=== PATIENT | male | born 1995 | race Caucasian/White ===

== ENCOUNTER 2017-05-07 12:38 | Emergency (ER) | payer BC ==
[~2017-05-07] VITALS: Ht 188 cm; Wt 78.0 kg
[2017-05-07 12:45] VITALS: TEMP 36.4; Ht 188 cm; Wt 78.0 kg
[2017-05-07] MEDS ORDERED: KETOROLAC TROMETHAMINE 30 MG/ML VIAL IV STA (13:45)
[2017-05-07] MEDS ORDERED: DiphenhydrAMINE HCL 50 MG/ML VIAL IV STA (13:45)
[2017-05-07] MEDS ORDERED: PROCHLORPERAZINE 5 MG/ML 2 ML VIAL IV STA (13:45)
[2017-05-07 14:06] LABS: BASO % 0.3 %; BASO ABS # 0.02 K/uL (0-0.2); EOS % 1.2 %; EOS ABS # 0.07 K/uL (0-0.5); HEMOGLOBIN 15.8 g/dL (14.0-18.0); IG# 0.01 K/uL (0.00-0.02); LYMPH % 24.3 %; LYMPH ABS # 1.45 K/uL (1.2-3.4); MEAN CORPUSCULAR HEMOGLOBIN 31.2 pg (25-34); MEAN CORPUSCULAR HGB CONC 35.9 g/dl (32-36); MONO % 10.7 %; MONO ABS # 0.64 K/uL (0.11-0.59); NEUT % 63.3 %; NEUT ABS # 3.77 K/uL (1.4-6.5); PLATELET COUNT 316 K/uL (130-400); RED CELL DISTRIBUTION WIDTH CV 12.1 % (11.5-14.5); RED CELL DISTRIBUTION WIDTH SD 38.2 fL (36.4-46.3); WHITE BLOOD COUNT 5.96 K/uL (4.8-10.8)
--- NOTE | 2017-05-07 14:16 | EMERGENCY ROOM VISIT NOTE ---
History First contact with patient: 13:32 Chief Complaint: HEADACHE Stated Complaint: HEADACHE, CAN'T THINK STRAIGHT History of Present Illness The patient is a 21 year old male who presents to the Emergency Room with complaints of a headache which started approximately 4 hours ago. The patient states that after showering this morning, he developed a gradually worsening left-sided headache. He states the headache is located above his left eye and is throbbing in nature. He rates the discomfort a 10/10. He has associated feeling of numbness throughout his right arm and shoulder. He has been nauseous but has not vomited. The patient took aspirin without relief. He reports this is the second time he has had a headache this week. The patient has reported history of similar headaches and states that they usually resolve with Advil. He is concerned because this headache has not resolved at this time. He has been to the ER before with a similar headache and had CT and MRI which he was told were normal. He has never followed up with his primary care provider or a neurologist regarding his headaches. He denies any confusion, blurred vision, slurred speech, or weakness. He reports some slight photosensitivity. He denies any fevers or recent flulike symptoms. Review of Systems A complete 10 point review of systems was reviewed with the patient with pertinent positives and negatives as per history of present illness. All else were negative. Past Medical/Surgical History Medical Problems: (1) Osteogenesis imperfecta Social History Smoking Status: Never Smoker Drug Use: none Marital Status: single Housing Status: lives with roommate Occupation Status: [employer] student Current/Historical Medications No Active Prescriptions or Reported Meds Physical Exam Vital Signs Date Time Temp Pulse Resp B/P (MAP) Pulse Ox O2 Delivery O2 Flow Rate FiO2 05/07/17 16:19 70 16 128/77 99 05/07/17 16:12 70 16 128/77 99 Room Air 05/07/17 14:45 55 18 124/74 100 Room Air 05/07/17 12:45 36.4 67 16 122/81 97 Room Air Physical Exam VITALS: Vitals are noted on the nurse's note and reviewed by myself. Vital signs stable. GENERAL: This is a 21-year-old male, in no acute distress, nondiaphoretic, well- developed well-nourished. SKIN: The skin was without rashes. HEAD: Normocephalic atraumatic. EARS: External auditory canals clear, tympanic membranes pearly valentine without erythema or effusion bilaterally. EYES: Pupils equal round and reactive to light and accommodation. Extraocular movements intact. MOUTH: Mucous membranes moist. Tonsils are not enlarged. Pharynx without erythema or exudate. NECK: Supple without nuchal rigidity. No lymphadenopathy. No meningismus. HEART: Regular rate and rhythm without murmurs gallops or rubs. LUNGS: Clear to auscultation bilaterally without wheezes, rales or rhonchi. MUSCULOSKELETAL: Strength 5/5 throughout. NEURO: Patient was alert and oriented to person place and time. Deep tendon reflexes 2+ throughout. No focal neurological deficits. Medical Decision & Procedures ER Provider Diagnostic Interpretation: HEAD WITHOUT CONTRAST (CT) CT DOSE: 614.27 mGy.cm HISTORY: Neuropathy left sided h/a with right arm numbness, hx similar, worse TECHNIQUE: Multiaxial CT images of the head were performed without the use of intravenous contrast. A dose lowering technique was utilized adhering to the principles of ALARA. Comparison: 06/13/2015 Findings: The paranasal sinuses and mastoid air cells are clear. The calvarium and skull base are intact. The ventricles and sulci are within normal limits. There is no mass, hematoma, midline shift, or acute infarct. Impression: No acute intracranial abnormality. Laboratory Results 05/07/17 13:56 Red Blood Count 5.06, Mean Corpuscular Volume 87.0, Mean Corpuscular Hemoglobin 31.2, Mean Corpuscular Hemoglobin Concent 35.9, Mean Platelet Volume 10.0, Neutrophils (%) (Auto) 63.3, Lymphocytes (%) (Auto) 24.3, Monocytes (%) (Auto) 10.7, Eosinophils (%) (Auto) 1.2, Basophils (%) (Auto) 0.3, Neutrophils # (Auto ) 3.77, Lymphocytes # (Auto) 1.45, Monocytes # (Auto) 0.64, Eosinophils # (Auto ) 0.07, Basophils # (Auto) 0.02 05/07/17 13:56 Test 05/07/17 13:56 White Blood Count 5.96 K/uL (4.8-10.8) Red Blood Count 5.06 M/uL (4.7-6.1) Hemoglobin 15.8 g/dL (14.0-18.0) Hematocrit 44.0 % (42-52) Mean Corpuscular Volume 87.0 fL (80-100) Mean Corpuscular Hemoglobin 31.2 pg (25-34) Mean Corpuscular Hemoglobin Concent 35.9 g/dl (32-36) Platelet Count 316 K/uL (130-400) Mean Platelet Volume 10.0 fL (7.4-10.4) Neutrophils (%) (Auto) 63.3 % Lymphocytes (%) (Auto) 24.3 % Monocytes (%) (Auto) 10.7 % Eosinophils (%) (Auto) 1.2 % Basophils (%) (Auto) 0.3 % Neutrophils # (Auto) 3.77 K/uL (1.4-6.5) Lymphocytes # (Auto) 1.45 K/uL (1.2-3.4) Monocytes # (Auto) 0.64 K/uL (0.11-0.59) Eosinophils # (Auto) 0.07 K/uL (0-0.5) Basophils # (Auto) 0.02 K/uL (0-0.2) RDW Standard Deviation 38.2 fL (36.4-46.3) RDW Coefficient of Variation 12.1 % (11.5-14.5) Immature Granulocyte % (Auto) 0.2 % Immature Granulocyte # (Auto) 0.01 K/uL (0.00-0.02) Anion Gap 5.0 mmol/L (3-11) Est Creatinine Clear Calc Drug Dose 156.6 ml/min Estimated GFR () 146.8 Estimated GFR (Non- 126.7 BUN/Creatinine Ratio 14.6 (10-20) Calcium Level 8.9 mg/dl (8.5-10.1) Medications Administered Medications (Trade) Dose Ordered Sig/Cristian Route Start Time Stop Time Status Last Admin Dose Admin Ketorolac Tromethamine (Toradol Inj) 30 mg NOW STAT IV 05/07/17 13:45 05/07/17 13:47 DC 05/07/17 14:00 30 MG Diphenhydramine HCl (Benadryl Inj) 25 mg NOW STAT IV 05/07/17 13:45 05/07/17 13:47 DC 05/07/17 14:01 25 MG Prochlorperazine Edisylate (Compazine Inj) 10 mg NOW STAT IV 05/07/17 13:45 05/07/17 13:47 DC 05/07/17 14:01 10 MG Dexamethasone Sodium Phosphate (Decadron Inj) 10 mg NOW STAT IV 05/07/17 14:30 05/07/17 14:31 DC 05/07/17 14:48 10 MG ED Course The patient was evaluated as above. Labs were drawn and IV access was obtained. Patient was medicated with IV Toradol, Benadryl and Compazine. Patient was reevaluated and was resting on his side with his eyes closed. He reports his headache has improved slightly and rates his current discomfort a 7/ 10. 10 mg Decadron IV was ordered CT of the head was performed and read by radiology as above. Patient was reevaluated and states that he feels much better. His father is present. Findings and treatment plan were discussed with patient and father at length. Discharge instructions were reviewed with the patient. The patient verbalized understanding of my assessment and treatment plan and was discharged home in good condition. Medical Decision The differential diagnosis includes acute intracranial bleed, meningitis, encephalitis, mass or mass effect, sinusitis, infection, tumor, headache, temporal arteritis and carbon monoxide exposure, and migraine. The patient is a 21-year-old male who presents today complaining of headache. Labs revealed no leukocytosis, anemia or concerning electrolyte abnormalities. CT of the head was performed as the patient reports a headache which is more severe than his previous headaches. This was read by radiology with no concerning findings. I did review previous records. Patient was seen here approximately 1 year ago with very similar presentation. At that time, he had a CT as well as MRI with and without contrast of the brain. Determination was made that the patient was likely suffering from migraines. He has not followed up with neurology. He felt much better after receiving the above treatment and I do feel he can be discharged home to follow-up with neurology as an outpatient. I had a lengthy discussion with the patient and father regarding this. Conservative measures were discussed. They will contact neurology to schedule follow-up appointment, and will follow up with [facility] in the interim. Based on the patient's presentation and work up, I feel the patient is stable for outpatient treatment. The patient was educated to return to the emergency department for any worsening of their current condition or new/concerning symptoms. He will follow up with [facility] and neurology. Medication Reconcilliation Current Medication List: was personally reviewed by me Blood Pressure Screening Patient's blood pressure: Normal blood pressure Impression Primary Impression: Headache Departure Information Dispostion Home / Self-Care Condition GOOD Prescriptions No Active Prescriptions or Reported Meds Referrals Isis Ritchie M.D. [facility] Patient Instructions My [facility] Additional Instructions You have been treated in the Emergency Department for a Headache. You have received pain medicine in the emergency department which impairs your ability to operate a vehicle. You should not drive after receiving these medicines. For pain control, you can use the following [id number] medicines (if >12 yo): - Regular strength (325mg/tab) Tylenol (acetaminophen) 2 tabs every 4-6 hours as needed. Do not exceed 12 tablets in a 24 hour period. Avoid taking more than 4 grams (4000 mg) of Tylenol per day. This includes any other sources of acetaminophen you may take on a regular basis. - Regular strength (200 mg/tab) Advil (ibuprofen) 1-2 tabs every 4-6 hours as needed. Do not exceed a dose of 3200 mg per day. You should relax in a quiet, dark place for the rest of the day. Avoid any possible triggers including: cigarette smoke, caffeine, nicotine, chocolate, wine, beer, loud noises or music, or bright lights. Contact [facility] to schedule a follow-up appointment within the next 2 days. You should also contact a neurologist to schedule a follow-up appointment regarding your recurrent headaches. Return to the Emergency Department if your current symptoms worsen despite treatment course outlined above, or if you develop any of the following symptoms : intractable pain despite aforementioned treatment course, visual disturbances , loss of vision, unilateral weakness or facial drooping, slurring of speech, loss of coordination, or loss of consciousness.
[2017-05-07 14:24] LABS: CALCIUM 8.9 mg/dl (8.5-10.1); CREATININE 0.83 mg/dl (0.60-1.40); POTASSIUM 4.1 mmol/L (3.5-5.1)
[2017-05-07] MEDS ORDERED: DEXAMETHASONE SOD INJ 4 MG/ML VIAL IV STA (14:30)
--- NOTE | 2017-05-07 14:54 | DIAGNOSTIC IMAGING REPORT ---
HEAD WITHOUT CONTRAST (CT) CT DOSE: 614.27 mGy.cm HISTORY: Neuropathy left sided h/a with right arm numbness, hx similar, worse TECHNIQUE: Multiaxial CT images of the head were performed without the use of intravenous contrast. A dose lowering technique was utilized adhering to the principles of ALARA. Comparison: 06/13/2015 Findings: The paranasal sinuses and mastoid air cells are clear. The calvarium and skull base are intact. The ventricles and sulci are within normal limits. There is no mass, hematoma, midline shift, or acute infarct. Impression: No acute intracranial abnormality. The above report was generated using voice recognition software. It may contain grammatical, syntax or spelling errors. Electronically signed by: Raudel Solis M.D. 05/07/2017 2:53 PM Dictated Date/Time: 05/07/2017 2:43 PM
[2017-05-07 16:19] VITALS: BP 128/77; PULSE 70; O2SAT 99
== END 2017-05-07 16:19 | disposition home or self-care (01) ==
LOC: C.EDB 12:41
DX: R51 Headache (principal)